=== PATIENT | female | born 1945 | race Two or more races ===

== ENCOUNTER 2018-08-28 08:04 | Inpatient (IN) | payer OTHER ==
[~2018-08-28] VITALS: Ht 162.6 cm; Wt 62.7 kg
[2018-08-28 08:11] VITALS: Ht 162.6 cm; Wt 62.7 kg
[2018-08-28 08:57] LABS: RED CELL DISTRIBUTION WIDTH 13.6 % (11.5-14.5)
[2018-08-28 09:07] LABS: UA SPECIFIC GRAVITY 1.015 (1.005-1.035); microscopic required? YES; urine erythrocyte TRACE (NEGATIVE)
[2018-08-28 09:21] LABS: PLATELET COUNT 716 x10^3mcL (130-400)
[2018-08-28 09:27] LABS: ALKALINE PHOSPHATASE 98 U/L (46-116); ALT/SGPT 24 U/L (14-59); AMYLASE 37 U/L (25-115); AST/SGOT 11 U/L (15-37); BILIRUBIN TOTAL 1.39 mg/dL (0.20-1.00); CALCIUM 9.7 mg/dL (8.5-10.1); CARBON DIOXIDE 25.9 mmol/L (21-32); CHLORIDE SERUM 102 mmol/L (98-107); CREATININE SERUM 0.8 mg/dL (0.6-1.0); GLUCOSE SERUM 105 mg/dL (74-106); LIPASE 118 IU/L (73-393); SODIUM SERUM 140 mmol/L (136-145); TOTAL PROTEIN, SERUM 7.3 g/dL (6.4-8.2)
[2018-08-28 09:30] LABS: POTASSIUM SERUM 2.9 mmol/L (3.5-5.1)
[2018-08-28 10:25] LABS: BAND NEUTROPHIL 1 % (0-10); BASOPHIL 0 % (0-2); MONOCYTE 12 % (0-7); SEGMENTED NEUTROPHILS 77 % (37-75)
[2018-08-28 10:26] LABS: PATH REVIEW for HEMA YES
[2018-08-28 10:30] LABS: rbc morphology (normal/abnorm) NORMAL (NORMAL)
[2018-08-28] MEDS ORDERED: NOR5 PO (11:06)
[2018-08-28] MEDS ORDERED: DROXIA300 MG PO (11:06)
[2018-08-28] MEDS ORDERED: HYDROXYUREA500 MG PO (14:32)
[2018-08-28] MEDS ORDERED: NOR10 PO (14:35)
[2018-08-28] MEDS ORDERED: ASPIR LOW81 MG PO (14:35)
[2018-08-28 15:09] VITALS: BP 126/70
[2018-08-28 16:41] VITALS: BP 111/56
== END 2018-08-28 20:02 | disposition left against medical advice (07) | DRG 463 ==
LOC: ED 08:04 → DU 10:52 → EDBEDREQSVC 10:54 → DU 12:17
PROVIDERS: ADMIT General Practice
DX: N39.0 Urinary tract infection, site not specified (principal); I81 Portal vein thrombosis; K85.90 Acute pancreatitis without necrosis or infection, unspecified; E44.0 Moderate protein-calorie malnutrition; I10 Essential (primary) hypertension; K59.09 Other constipation; I73.00 Raynaud's syndrome without gangrene; E87.6 Hypokalemia; D47.3 Essential (hemorrhagic) thrombocythemia; Z53.21 Procedure and treatment not carried out due to patient leaving prior to being seen by health care provider
CPT/HCPCS: 85060; J0696; J1885; J2270; J2405; J3480; Q0092; Q9967